=== PATIENT | female | born 1985 | race Caucasian/White ===

== ENCOUNTER 2024-02-09 13:15 | Emergency (ER) | payer OTHER ==
[~2024-02-09] VITALS: Ht 167.6 cm; Wt 67.5 kg
[2024-02-09 13:17] VITALS: BP 151/99; PULSE 79; RESP 18; TEMP 99.2; O2SAT 98
[2024-02-09] MEDS ORDERED: NO HOME MEDS (13:24)
[2024-02-09] MEDS ORDERED: ketorolac trometh inj. 60 MG/2 ML VIAL IM ONE (14:25)
[2024-02-09] MEDS: ketorolac trometh. 30mg/ml inj. IM ONE (14:46)
== END 2024-02-09 15:20 | disposition home or self-care (01) ==
LOC: ER 13:16
DX: S60.041A Contusion of right ring finger without damage to nail, initial encounter (principal); Z88.5 Allergy status to narcotic agent; Z88.0 Allergy status to penicillin; W23.0XXA Caught, crushed, jammed, or pinched between moving objects, initial encounter; Y93.89 Activity, other specified; Y92.89 Other specified places as the place of occurrence of the external cause; Y99.8 Other external cause status
CPT/HCPCS: 29280; 73130; 73140; 99284